=== PATIENT | male | born 1980 | race Caucasian/White ===

== ENCOUNTER 2016-05-09 17:38 | Emergency (ER) | payer MEDICAID ==
[2016-05-09] MEDS ORDERED: METOCLOPRAMIDE 10 MG/2 ML VIAL ONE (19:58)
[2016-05-09] MEDS ORDERED: SODIUM CHLORIDE 0.9% 1,000 ML ONE (19:58)
[2016-05-09] MEDS ORDERED: KETOROLAC 30 MG/ML VIAL ONE (19:58)
[2016-05-09] MEDS ORDERED: DIPHENHYDRAMINE 50 MG/ML VIAL ONE (19:58)
== END 2016-05-09 22:38 | disposition home or self-care (01) ==
LOC: ER 18:01
DX: G43.011 Migraine without aura, intractable, with status migrainosus (principal); Z79.899 Other long term (current) drug therapy; F17.210 Nicotine dependence, cigarettes, uncomplicated; F32.9 Major depressive disorder, single episode, unspecified
CPT/HCPCS: 96361; 96374; 96375